=== PATIENT | male | born 1990 | race Two or more races ===

== ENCOUNTER 2017-07-23 03:18 | Emergency (ER) | payer SELFPAY ==
--- NOTE | 2017-07-23 03:28 | ED Physician Chart ---
Chief Complaint/HPI - Patient Information Date Seen:: 07/23/17 Time Seen:: 03:22 Chief Complaint:: medical screening examination History of Present Illness:: 27-year-old male, brought in by police with acute, moderate, constant, need for medical screening examination. Has associated uncooperative behavior. Historian:: Patient, Other (police) Review:: Nurse's Note Reviewed Review of Systems - Review of Systems Other: Complete system review otherwise unremarkable except as noted in history of present illness. Past Medical History - Past Medical History Past Medical History: No significant medical hx Family History: None Social History: Non Smoker, Alcohol, No Drug Use, Other Surgical History: None Psychiatricy History: None Medication: None Family Medical History - Family Member Mother History Unknown: Yes Physical Exam - Physical Examination Other:: INITIAL VITAL SIGNS: Reviewed by me GENERAL: Alert and interactive but uncooperative. No acute distress HEAD: Head is normocephalic and atraumatic EYES: EOMI. PERRL. No scleral icterus. No conjunctival injection ENT: Moist mucous membranes. NECK: Supple. No masses. Full range of motion RESPIRATORY: No tachypnea. Clear breath sounds bilaterally. No wheezing, rales, or rhonchi CV: Regular rate and rhythm. No murmurs, rubs, or gallops ABDOMEN: Soft, non-distended, non-tender. No guarding. No rebound. No masses. EXTREMITIES: No deformity. No cyanosis. No edema. Third toe, right foot, small excoriation. SKIN: Warm and dry. No obvious rashes. NEUROLOGIC: Alert and oriented. Face is symmetric. Speech is normal. Moves all extremities equally. Motor and sensory distally intact. ED Septic Shock - . Is Septic Shock (SBP<90, OR Lactate>4 mmol\L) present?: No Reassessment (Disposition) - Reassessment Reassessment:: Blood pressure was noted to be elevated over 120/80. There were no signs of hypertension. Discussed the findings with the patient and recommended that the patient follow up with the primary care physician regarding the elevated blood pressure. Patient is somewhat uncooperative. Apparently he resisted arrest and was wrestled to the ground. He did walk in to the emergency department in handcuffs showing no signs of any distress. He had no gait abnormality. The patient is now lying in bed and can move all extremities equally and shows no signs of acute pain or distress. There is a very small excoriations the right third toe. Otherwise no obvious deformities or injuries. He does have some dirt on his knees. Patient is alert and oriented and shows no signs of any pain. Medical screening examination complete. Patient is okay to book. No apparent emergent medical condition. Reassessment Condition:: Improved - Diagnosis Diagnosis:: Medical screening examination - Aftercare/Follow up Instructions Aftercare/Follow-Up Instructions:: Counseled pt regarding lab results/diagnosis & need follow up, Refer to Discharge Instructions - Patient Disposition Discharge/Transfer:: Detention/Correction Time:: 03:28 Condition at Disposition:: Improved ED Discharge Plan - Patient Disposition Admit/Discharge/Transfer: Detention/Correction Condition at Disposition: Improved Additional Instructions: We recommend that you follow up with your primary care physician one to 2 days after you are released from police custody
== END 2017-07-23 03:40 | disposition still patient (30) ==
LOC: ER 03:18
DX: Z00.00 Encounter for general adult medical examination without abnormal findings (principal)
CPT/HCPCS: Z7502